=== PATIENT | female | born 1955 | race Caucasian/White ===

== ENCOUNTER 2020-06-21 18:31 | Observation (INO) ==
[2020-06-21 19:10] LABS: Basophils # 0.1 K/mcL (0.0-0.2); Basophils % 0.7 %; Eosinophils # 0.3 K/mcL (0.0-0.6); Eosinophils % 2.3 %; Hematocrit 41.1 % (35.3-44.9); Hemoglobin 13.3 g/dL (11.5-15.4); Immature Granulocytes % 0.3 % (0-4); Lymphocytes # 2.5 K/mcL (0.6-4.6); Lymphocytes % 19.1 %; Mean Corpuscular HGB Conc 32.4 g/dL (31.6-35.5); Mean Corpuscular Hemoglobin 28.4 pg (28.0-33.3); Mean Corpuscular Volume 87.6 fL (83.0-100.0); Mean Platelet Volume 10.7 fL (9.4-12.4); Monocytes # 1.5 K/mcL (0.0-1.3); Monocytes % 11.3 %; Platelet Count 481 K/mcL (140-400); Red Blood Count 4.69 M/mcL (3.82-4.97); Red Cell Distribution Width 14.9 % (11.5-14.5); Segmented Neutrophils % 66.3 %; White Blood Count 12.9 K/mcL (4.3-11.1)
[2020-06-21 19:17] LABS: Neutrophils # 8.6 K/mcL (1.6-8.9)
[2020-06-21 19:20] LABS: Prothrombin Time 10.8 Seconds (9.4-12.1)
[2020-06-21 19:26] LABS: BUN/Creatinine Ratio 23 (6-26); Blood Urea Nitrogen 17 mg/dL (8-23); Calcium 9.1 mg/dL (8.6-10.3); Carbon Dioxide 27 mEq/L (23-29); Chloride 105 mEq/L (98-107); Glucose 157 mg/dL (70-105); Osmolality,Calculated 299 (280-300); Potassium 3.6 mEq/L (3.5-5.1); Sodium 142 mEq/L (136-145); eGFR For African Americans > 60 (> 60); eGFR For Non-African Americans > 60 (> 60)
[2020-06-21 19:30] LABS: Troponin I < 0.03 ng/mL (< 0.04)
[2020-06-21] MEDS: Nitroglycerin 0.4 MG TAB.SUBL SL SCH ×3 (19:40→19:55)
[2020-06-21] MEDS ORDERED: Ketorolac 30 MG/ML VIAL IVP ONE (20:31)
[2020-06-21] MEDS ORDERED: *HR* Dextrose 50 % in Water (Vial) 50 ML VIAL IVP PRN ×2 (21:42→22:08)
[2020-06-21] MEDS ORDERED: D5% in Water 1,000 ML IVC PRN ×2 (21:42→22:08)
[2020-06-21] MEDS ORDERED: Dextrose Gel 15 GM/37.5 ML TUBE PO PRN ×4 (21:42→22:08)
[2020-06-21] MEDS ORDERED: Perflutren Lipid Microsphere 1.3 ML in 0.9 % Sodium Chloride 8.7 ML IVP PRN ×2 (21:45→22:08)
[2020-06-22] MEDS ORDERED: Ketorolac 30 MG/ML VIAL IVP PRN (01:20)
[2020-06-22] MEDS ORDERED: Morphine Sulfate 2 MG/ML SYRINGE IVP PRN (01:28)
[2020-06-22] MEDS ORDERED: Insulin DETEMIR 100 UNIT/ML per UNIT SQ SCH ×2 (01:50→21:00)
[2020-06-22] MEDS ORDERED: Losartan/HCTZ 50-12.5 TABLET PO SCH ×2 (02:00→09:00)
[2020-06-22] MEDS ORDERED: Gabapentin 300 MG CAPSULE PO SCH ×2 (02:00→21:00)
[2020-06-22] MEDS ORDERED: Insulin LISPRO 300 UNITS/3 ML VIAL SQ SCH ×3 (07:30→21:00)
[2020-06-22] MEDS: Insulin LISPRO 300 UNITS/3 ML VIAL SQ SCH ×3 (07:34→16:41)
[2020-06-22] MEDS ORDERED: aMILoride 5 MG TABLET PO SCH (09:00)
[2020-06-22] MEDS ORDERED: Famotidine 20 MG TABLET PO SCH (09:00)
[2020-06-22] MEDS ORDERED: Cholecalciferol (D-3) 1,000 UNIT (25MCG) TABLET PO SCH (09:00)
[2020-06-22 09:30] LABS: Basophils # 0.1 K/mcL (0.0-0.2); Basophils % 0.7 %; Eosinophils # 0.3 K/mcL (0.0-0.6); Hematocrit 41.6 % (35.3-44.9); Hemoglobin 13.6 g/dL (11.5-15.4); Immature Granulocytes % 0.5 % (0-4); Lymphocytes # 2.7 K/mcL (0.6-4.6); Mean Corpuscular HGB Conc 32.7 g/dL (31.6-35.5); Mean Corpuscular Hemoglobin 28.6 pg (28.0-33.3); Mean Corpuscular Volume 87.6 fL (83.0-100.0); Mean Platelet Volume 10.6 fL (9.4-12.4); Monocytes # 1.3 K/mcL (0.0-1.3); Monocytes % 12.1 %; Neutrophils # 6.3 K/mcL (1.6-8.9); Platelet Count 498 K/mcL (140-400); Red Blood Count 4.75 M/mcL (3.82-4.97); Red Cell Distribution Width 14.8 % (11.5-14.5); Segmented Neutrophils % 58.7 %; White Blood Count 10.7 K/mcL (4.3-11.1)
[2020-06-22] MEDS ORDERED: *HR* HYDROcodone/Acet 5/325 mg TABLET PO ONE (09:40)
[2020-06-22 09:54] LABS: BUN/Creatinine Ratio 26 (6-26); Blood Urea Nitrogen 18 mg/dL (8-23); Calcium 9.7 mg/dL (8.6-10.3); Carbon Dioxide 30 mEq/L (23-29); Chloride 104 mEq/L (98-107); Glucose 130 mg/dL (70-105); Osmolality,Calculated 300 (280-300); Potassium 3.6 mEq/L (3.5-5.1); Sodium 143 mEq/L (136-145); eGFR For African Americans > 60 (> 60); eGFR For Non-African Americans > 60 (> 60)
[2020-06-22] MEDS ORDERED: Aspirin Enteric Coated 81 MG Tablet PO SCH (10:00)
[2020-06-22 15:23] VITALS: BP 156/82
[2020-06-22] MEDS ORDERED: aMILoride 5 MG TABLET PO ONE (16:30)
[2020-06-22] MEDS ORDERED: atenoloL 50 MG TABLET PO SCH (21:00)
[2020-06-22] MEDS ORDERED: Insulin DETEMIR 100 UNIT/ML X5UNITS SQ SCH (21:00)
[2020-06-24] MEDS ORDERED: (Exenatide Microspheres [Bydureon Pen] 2 MG) SQ SCH (12:00)
== END 2020-06-22 17:20 | disposition home or self-care (01) ==
LOC: INPPIK 18:31 → EMEROOPIK 18:31 → INPPIK 22:02
PROVIDERS: ADMIT Family Medicine; ATTEND Family Medicine